=== PATIENT | male | born 1990 | race Hispanic/Latino ===

== ENCOUNTER 2019-01-30 12:50 | Emergency (ER) | payer MEDICAID, SELFPAY ==
[2019-01-30] MEDS ORDERED: Dexamethasone 4 mg/ml Vial ONE (14:06)
[2019-01-30] MEDS ORDERED: Diazepam 5 MG TAB ONE ×2 (14:06→18:01)
[2019-01-30] MEDS ORDERED: Ketorolac Tromethamine 30 MG/ML VIAL ONE (14:08)
--- NOTE | 2019-01-30 17:57 | MRI ---
MRI LUMBAR SPINE WITHOUT CONTRAST: 01/30/19 INDICATIONS: Back pain. Lumbar pain. FINDINGS: The lumbar vertebrae maintain normal height and alignment. There is mild loss of disc space and loss of T2 signal at the L5-S1 disc space. There is moderate sized disc protrusion at L5-S1 which is centr ally and slightly paracentrally to the left. This compresses the anterior thecal sac and contacts bot h traversing S1 nerve roots, more prominent on the left. This protruded disc measures 9 mm AP dimensi on in the axial plane. The other disc spaces are normally maintained and exhibit normal signal. No other evidence of disc bu lge or disc protrusion. IMPRESSION: Herniated disc at L5-S1 as described above. POS: [facility]
== END 2019-01-30 18:29 | disposition home or self-care (01) ==
LOC: ERS 12:50
DX: M51.26 Other intervertebral disc displacement, lumbar region (principal); F17.210 Nicotine dependence, cigarettes, uncomplicated
CPT/HCPCS: 72148; 96372; J1100; J1885